=== PATIENT | male | born 1965 | race Two or more races ===

== ENCOUNTER 2021-11-02 13:35 | Inpatient (IN) | payer OTHER ==
[2021-11-02 14:37] VITALS: PULSE 117; BMI 17.7
[2021-11-02] MEDS ORDERED: BENZOCAINE/MENTHOL (CHLORASEPTIC ) LOZENGE MM PRN (15:56)
[2021-11-02] MEDS ORDERED: BISMUTH SUBSALICYLATE 524 MG/30 ML PO PRN (15:56)
[2021-11-02] MEDS ORDERED: LOPERAMIDE HCL 2 MG CAPSULE PO PRN (15:56)
[2021-11-02] MEDS ORDERED: MAG HYDROX/AL HYDROX/SIMETH 30 ML UNIT-DOSE CUP PO PRN (15:56)
[2021-11-02] MEDS ORDERED: METHOCARBAMOL 500 MG TABLET PO PRN (15:56)
[2021-11-02] MEDS ORDERED: ACETAMINOPHEN 325 MG TABLET (FP) PO PRN ×2 (15:56)
[2021-11-02] MEDS ORDERED: IBUPROFEN 600 MG TABLET (FP) PO PRN (15:56)
[2021-11-02] MEDS ORDERED: MAGNESIUM CITRATE 300 ML BOTTLE PO PRN (15:56)
[2021-11-02] MEDS ORDERED: IBUPROFEN 400 MG TABLET (FP) PO PRN (15:56)
[2021-11-02] MEDS ORDERED: MAGNESIUM HYDROX 2400MG/30ML ORAL SUSPENSION 30 ML CUP PO PRN (15:56)
[2021-11-02] MEDS ORDERED: DICYCLOMINE HCL 10 MG CAPSULE PO PRN (15:56)
[2021-11-02] MEDS ORDERED: ONDANSETRON *ODT* 4 MG TABLET SL PRN (15:56)
[2021-11-02] MEDS ORDERED: LORazepam 1 MG TABLET PO PRN (16:14)
[2021-11-02] MEDS: LORazepam 2 MG TABLET PO SCH ×2 (16:28→22:44)
[2021-11-02] MEDS: INSULIN SLIDING SCALE (NOVOLOG) 1 VIAL SQ SCH ×3 (18:44→22:46)
[2021-11-02] MEDS ORDERED: INSULIN (NOVOLOG) ASPART 100 UNITS/ML 10ML VIAL ONE (18:48)
[2021-11-02] MEDS: hydrOXYzine PAMOATE 25 MG CAPSULE (FP) PO SCH ×2 (19:07→22:45)
[2021-11-02 20:29] VITALS: BP 145/101; TEMP 97.6
[2021-11-02] MEDS ORDERED: METOPROLOL TARTRATE 25 MG TABLET (FP) PO ONE (20:31)
[2021-11-02] MEDS ORDERED: MELATONIN 5 MG TABLETS PO SCH (22:00)
[2021-11-02] MEDS ORDERED: THIAMINE HCL 100 MG TABLET (FP) PO SCH (22:00)
[2021-11-03] MEDS: LORazepam 2 MG TABLET PO SCH (05:56)
[2021-11-03] MEDS: INSULIN SLIDING SCALE (NOVOLOG) 1 VIAL SQ SCH (06:08)
[2021-11-03] MEDS ORDERED: PRENATAL VITAMINS W/ FOLIC ACID TABLET (FP) PO SCH (10:00)
[2021-11-04] MEDS ORDERED: LORazepam 1 MG TABLET PO SCH (05:00)
[2021-11-05] MEDS ORDERED: LORazepam 0.5 MG TABLET PO PRN
[2021-11-05] MEDS ORDERED: LORazepam 0.5 MG TABLET PO SCH (05:00)
[2021-11-06] MEDS ORDERED: LORazepam 0.5 MG TABLET PO ONE (05:00)
== END 2021-11-03 06:48 | disposition short-term general hospital (02) | DRG 775 ==
LOC: YASAS 13:35 → Y6N 15:50
PROVIDERS: ADMIT Allergy & Immunology; ATTEND Surgery
PROC: HZ2ZZZZ Detoxification Services for Substance Abuse Treatment (ICD-10-PCS; principal; 2021-11-02)
DX: F10.230 Alcohol dependence with withdrawal, uncomplicated (principal); E11.9 Type 2 diabetes mellitus without complications; R94.31 Abnormal electrocardiogram [ECG] [EKG]; R63.4 Abnormal weight loss; Z68.1 Body mass index [BMI] 19.9 or less, adult
CPT/HCPCS: 82962; 93005; 93010; C9803-CS; U0003; U0005

== ENCOUNTER 2021-11-03 00:34 | Inpatient (IN) | payer OTHER ==
[2021-11-03] MEDS ORDERED: SODIUM CHLORIDE 0.9% 500 ML INFUS.BAG IV ONE (01:06)
[2021-11-03 02:03] LABS: BASO % 0.4 % (0-2.0); EOS % 0.9 % (0-4.5); HEMATOCRIT 37.2 % (35.4-49); HEMOGLOBIN 12.6 GM/dL (11.7-16.9); LYMPH % 28.9 % (8-40); MCH 28.9 pg (25.7-33.7); MCHC 33.8 g/dl (32.0-35.9); MEAN CELL VOLUME 85.5 fl (80-96); MEAN PLT VOLUME 7.7 fl (7.5-11.1); MONO % 10.2 % (3.8-10.2); NEUT % 59.6 % (42.8-82.8); PLATELET COUNT 86 10^3/uL (134-434); RBC 4.35 M/mm3 (4.00-5.60); WHITE BLOOD COUNT 6.8 K/mm3 (4.0-10.0)
[2021-11-03 02:11] LABS: INR 0.97 (0.83-1.09); PROTHROMBIN TIME (PATIENT) 11.2 SEC (9.7-13.0)
[2021-11-03 02:13] LABS: ACTIVATED PTT 34.9 SECONDS (25.2-36.5)
[2021-11-03 02:25] LABS: CALCIUM 8.7 mg/dL (8.5-10.1)
[2021-11-03 02:26] LABS: ALBUMIN 3.7 g/dl (3.4-5.0); BLOOD UREA NITROGEN 11.8 mg/dL (7-18)
[2021-11-03 02:29] LABS: CREATININE 0.7 mg/dL (0.55-1.3)
[2021-11-03 02:30] LABS: TOT PROT 7.2 g/dl (6.4-8.2)
[2021-11-03 02:31] LABS: BILIRUBIN,TOTAL 0.9 mg/dL (0.2-1)
[2021-11-03] MEDS ORDERED: FAMOTIDINE 20 MG/50 ML IVPB 20 MG/50 ML MG IVPB ONE ×2 (04:23→04:26)
[2021-11-03] MEDS ORDERED: LORazepam 2 MG/ML SDV VIAL IVPUSH ONE (04:45)
[2021-11-03] MEDS ORDERED: ENOXAPARIN NA (PORCINE) 40 MG/0.4 ML DISP.SYRIN SQ ONE (08:54)
[2021-11-03] MEDS ORDERED: MAGNESIUM SULFATE IN WATER 2 GM/50 ML IVPB IVPB ONE (08:54)
[2021-11-03] MEDS ORDERED: MAGNESIUM 2GM/50ML STERILE WATER IVPB IVPB ONE (09:00)
[2021-11-03] MEDS ORDERED: ENOXAPARIN NA (PORCINE) 40 MG/0.4 ML DISP.SYRIN SQ SCH (10:00)
[2021-11-03 10:47] VITALS: BMI 17.6
[2021-11-03] MEDS ORDERED: INSULIN (NOVOLOG) ASPART 100 UNITS/ML 10ML VIAL ONE (11:53)
[2021-11-03] MEDS: FOLIC ACID 1 MG TABLET (FP) PO SCH (11:59)
[2021-11-03] MEDS: INSULIN SLIDING SCALE (NOVOLOG) 1 VIAL SQ SCH ×3 (12:00→21:21)
[2021-11-03] MEDS: THIAMINE HCL 200 MG/2 ML VIAL IVPB SCH (12:00)
[2021-11-03] MEDS: MAG HYDROX/AL HYDROX/SIMETH 30 ML UNIT-DOSE CUP PO PRN ×2 (12:07→21:37)
[2021-11-03] MEDS ORDERED: ONDANSETRON 4 MG/2 ML VIAL IVPUSH PRN (13:27)
[2021-11-03] MEDS: LORazepam 2 MG/ML SDV VIAL IVPUSH PRN ×2 (14:12→21:20)
[2021-11-03 15:03] LABS: N-TERMINAL BNP 922.4 pg/ml (5-125)
[2021-11-03] MEDS: MAG HYDROX/AL HYDROX/SIMETH 30 ML UNIT-DOSE CUP PO SCH ×2 (17:33→23:31)
[2021-11-03 20:51] LABS: BLOOD UREA NITROGEN 12.4 mg/dL (7-18); MAGNESIUM 1.5 mg/dL (1.8-2.4)
[2021-11-03 20:54] LABS: CREATININE 0.9 mg/dL (0.55-1.3)
[2021-11-03] MEDS: FAMOTIDINE 20 MG/50 ML IVPB 20 MG/50 ML MG IVPB SCH (21:20)
[2021-11-03 21:49] LABS: EPI CELLS 1 /uL (0-25.1); HYALINE CASTS 0 /uL (0-3.1); PH,URINE 8.5 (5.0-8.0); URINE APPEARANCE CLEAR; URINE BACTERIA 9 /uL (0-1359); URINE BILIRUBIN NEGATIVE (NEGATIVE); URINE COLOR YELLOW; URINE GLUCOSE (UA) NEGATIVE (NEGATIVE); URINE KETONE TRACE (NEGATIVE); URINE LEUK ESTERASE NEGATIVE (NEGATIVE); URINE NITRITE NEGATIVE (NEGATIVE); URINE PROTEIN 1+ (NEGATIVE); URINE RBC 5 /uL (0-23.9); URINE WBC 1 /uL (0-25.8)
[2021-11-04] MEDS ORDERED: LORazepam 2 MG/ML SDV VIAL IVPUSH ONE ×2 (00:56→02:07)
[2021-11-04] MEDS: MAG HYDROX/AL HYDROX/SIMETH 30 ML UNIT-DOSE CUP PO SCH ×3 (06:13→17:00)
[2021-11-04] MEDS: INSULIN SLIDING SCALE (NOVOLOG) 1 VIAL SQ SCH ×4 (06:14→21:28)
[2021-11-04] MEDS: LORazepam 2 MG/ML SDV VIAL IVPUSH PRN (06:15)
[2021-11-04] MEDS ORDERED: LOSARTAN POTASSIUM 25 MG TABLET PO SCH (10:00)
[2021-11-04] MEDS: FAMOTIDINE 20 MG/50 ML IVPB 20 MG/50 ML MG IVPB SCH ×2 (10:58→21:29)
[2021-11-04] MEDS: THIAMINE HCL 200 MG/2 ML VIAL IVPB SCH (10:59)
[2021-11-04] MEDS: FOLIC ACID 1 MG TABLET (FP) PO SCH (10:59)
[2021-11-04 11:02] LABS: BASO % 0.5 % (0-2.0); EOS % 0.3 % (0-4.5); HEMATOCRIT 35.1 % (35.4-49); HEMOGLOBIN 11.9 GM/dL (11.7-16.9); MCHC 33.8 g/dl (32.0-35.9); MEAN CELL VOLUME 85.8 fl (80-96); MEAN PLT VOLUME 8.5 fl (7.5-11.1); MONO % 10.9 % (3.8-10.2); NEUT % 63.3 % (42.8-82.8); PLATELET COUNT 78 10^3/uL (134-434); RBC 4.09 M/mm3 (4.00-5.60); RDW 16.1 % (11.9-15.9); WHITE BLOOD COUNT 5.4 K/mm3 (4.0-10.0)
[2021-11-04 11:11] LABS: ALBUMIN 3.5 g/dl (3.4-5.0); BLOOD UREA NITROGEN 10.8 mg/dL (7-18)
[2021-11-04 11:12] LABS: CALCIUM 8.9 mg/dL (8.5-10.1); MAGNESIUM 1.6 mg/dL (1.8-2.4)
[2021-11-04 11:14] LABS: CREATININE 0.7 mg/dL (0.55-1.3)
[2021-11-04 11:16] LABS: BILIRUBIN,TOTAL 0.8 mg/dL (0.2-1); TOT PROT 6.7 g/dl (6.4-8.2)
[2021-11-04] MEDS: POTASSIUM CHLORIDE TABS 20 MEQ TABLET.ER (FP) PO SCH (16:02)
[2021-11-04] MEDS ORDERED: LORazepam 2 MG/ML SDV VIAL IVPUSH PRN (18:34)
[2021-11-04] MEDS ORDERED: ONDANSETRON 4 MG/2 ML VIAL IVPUSH PRN (18:34)
[2021-11-04] MEDS: LORazepam 2 MG/ML SDV VIAL IVPUSH SCH ×2 (18:59→22:52)
[2021-11-05] MEDS ORDERED: MAG HYDROX/AL HYDROX/SIMETH 30 ML UNIT-DOSE CUP PO SCH
[2021-11-05] MEDS: LORazepam 2 MG/ML SDV VIAL IVPUSH SCH ×6 (03:16→23:30)
[2021-11-05] MEDS: INSULIN SLIDING SCALE (NOVOLOG) 1 VIAL SQ SCH ×4 (06:11→21:17)
[2021-11-05 07:35] LABS: BASO % 0.8 % (0-2.0); EOS % 2.6 % (0-4.5); HEMOGLOBIN 11.5 GM/dL (11.7-16.9); LYMPH % 39.6 % (8-40); MCH 29.5 pg (25.7-33.7); MCHC 33.8 g/dl (32.0-35.9); MEAN CELL VOLUME 87.3 fl (80-96); MEAN PLT VOLUME 8.5 fl (7.5-11.1); MONO % 12.2 % (3.8-10.2); NEUT % 44.8 % (42.8-82.8); PLATELET COUNT 89 10^3/uL (134-434); RDW 15.8 % (11.9-15.9); WHITE BLOOD COUNT 3.8 K/mm3 (4.0-10.0)
[2021-11-05 07:53] LABS: ALBUMIN 3.3 g/dl (3.4-5.0); BLOOD UREA NITROGEN 11.9 mg/dL (7-18)
[2021-11-05 07:56] LABS: CREATININE 0.8 mg/dL (0.55-1.3)
[2021-11-05 07:58] LABS: BILIRUBIN,TOTAL 0.7 mg/dL (0.2-1); TOT PROT 6.2 g/dl (6.4-8.2)
[2021-11-05] MEDS: POTASSIUM CHLORIDE TABS 20 MEQ TABLET.ER (FP) PO SCH (10:36)
[2021-11-05] MEDS: FAMOTIDINE 20 MG/50 ML IVPB 20 MG/50 ML MG IVPB SCH ×2 (10:36→21:20)
[2021-11-05] MEDS: LOSARTAN POTASSIUM 25 MG TABLET PO SCH (10:38)
[2021-11-05] MEDS: FOLIC ACID 1 MG TABLET (FP) PO SCH (10:38)
[2021-11-05] MEDS: THIAMINE HCL 200 MG/2 ML VIAL IVPB SCH (10:39)
[2021-11-05] MEDS: INSULIN (LEVEMIR) 100 UNITS/ML UNITS SQ SCH ×2 (11:16→16:59)
[2021-11-06] MEDS: LORazepam 2 MG/ML SDV VIAL IVPUSH SCH ×3 (04:01→11:53)
[2021-11-06] MEDS: INSULIN (LEVEMIR) 100 UNITS/ML UNITS SQ SCH ×2 (06:47→16:59)
[2021-11-06 07:53] LABS: BASO % 0.6 % (0-2.0); EOS % 2.3 % (0-4.5); HEMATOCRIT 35.2 % (35.4-49); HEMOGLOBIN 11.7 GM/dL (11.7-16.9); MCH 29.3 pg (25.7-33.7); MCHC 33.2 g/dl (32.0-35.9); MEAN CELL VOLUME 88.3 fl (80-96); MEAN PLT VOLUME 8.4 fl (7.5-11.1); MONO % 14.6 % (3.8-10.2); NEUT % 43.5 % (42.8-82.8); PLATELET COUNT 115 10^3/uL (134-434); RBC 3.99 M/mm3 (4.00-5.60); RDW 15.6 % (11.9-15.9); WHITE BLOOD COUNT 4.2 K/mm3 (4.0-10.0)
[2021-11-06 08:14] LABS: CALCIUM 8.9 mg/dL (8.5-10.1)
[2021-11-06 08:15] LABS: ALBUMIN 3.2 g/dl (3.4-5.0); BLOOD UREA NITROGEN 10.9 mg/dL (7-18)
[2021-11-06 08:18] LABS: CREATININE 0.7 mg/dL (0.55-1.3)
[2021-11-06 08:19] LABS: BILIRUBIN,TOTAL 0.6 mg/dL (0.2-1); TOT PROT 6.1 g/dl (6.4-8.2)
[2021-11-06] MEDS: LOSARTAN POTASSIUM 25 MG TABLET PO SCH (09:44)
[2021-11-06] MEDS: FAMOTIDINE 20 MG/50 ML IVPB 20 MG/50 ML MG IVPB SCH ×2 (09:51→21:11)
[2021-11-06] MEDS: POTASSIUM CHLORIDE TABS 20 MEQ TABLET.ER (FP) PO SCH (09:51)
[2021-11-06] MEDS: FOLIC ACID 1 MG TABLET (FP) PO SCH (09:51)
[2021-11-06] MEDS: THIAMINE HCL 200 MG/2 ML VIAL IVPB SCH (09:51)
[2021-11-06] MEDS: INSULIN SLIDING SCALE (NOVOLOG) 1 VIAL SQ SCH ×4 (11:19→21:12)
[2021-11-06] MEDS ORDERED: ACETAMINOPHEN 1000 MG/100 ML BAG IVPB PRN (11:34)
[2021-11-06] MEDS: LORazepam 1 MG TABLET PO PRN ×2 (12:06→21:11)
[2021-11-06] MEDS: LACTATED RINGERS SOLUTION 1,000 ML/1,000 ML INFUS.BAG IV SCH (12:12)
[2021-11-06] MEDS: metoPROLOL SUCCINATE 25 MG TAB.SR.24H (FP) PO SCH (12:17)
[2021-11-06 13:51] LABS: BASO % 0.5 % (0-2.0); HEMOGLOBIN 11.6 GM/dL (11.7-16.9); LYMPH % 35.1 % (8-40); MCH 29.3 pg (25.7-33.7); MCHC 33.2 g/dl (32.0-35.9); MEAN CELL VOLUME 88.5 fl (80-96); MEAN PLT VOLUME 8.5 fl (7.5-11.1); MONO % 13.2 % (3.8-10.2); NEUT % 49.2 % (42.8-82.8); PLATELET COUNT 122 10^3/uL (134-434); RBC 3.95 M/mm3 (4.00-5.60); RDW 16.1 % (11.9-15.9); WHITE BLOOD COUNT 3.8 K/mm3 (4.0-10.0)
[2021-11-06 14:11] LABS: ALBUMIN 3.1 g/dl (3.4-5.0); CALCIUM 9.2 mg/dL (8.5-10.1)
[2021-11-06 14:12] LABS: BLOOD UREA NITROGEN 10.5 mg/dL (7-18)
[2021-11-06 14:14] LABS: CREATININE 0.7 mg/dL (0.55-1.3)
[2021-11-06 14:17] LABS: BILIRUBIN,TOTAL 0.4 mg/dL (0.2-1); TOT PROT 6.1 g/dl (6.4-8.2)
[2021-11-07] MEDS: INSULIN SLIDING SCALE (NOVOLOG) 1 VIAL SQ SCH ×4 (06:15→21:19)
[2021-11-07] MEDS: INSULIN (LEVEMIR) 100 UNITS/ML UNITS SQ SCH ×2 (06:19→18:20)
[2021-11-07] MEDS ORDERED: TRIMETHOBENZAMIDE HCL 200MG/2ML INJ IM PRN (08:33)
[2021-11-07 09:02] LABS: BASO % 0.8 % (0-2.0); HEMATOCRIT 34.2 % (35.4-49); HEMOGLOBIN 11.4 GM/dL (11.7-16.9); LYMPH % 41.2 % (8-40); MCH 29.5 pg (25.7-33.7); MCHC 33.2 g/dl (32.0-35.9); MEAN CELL VOLUME 88.7 fl (80-96); MEAN PLT VOLUME 8.6 fl (7.5-11.1); MONO % 16.2 % (3.8-10.2); NEUT % 39.8 % (42.8-82.8); PLATELET COUNT 143 10^3/uL (134-434); RBC 3.86 M/mm3 (4.00-5.60); RDW 16.2 % (11.9-15.9)
[2021-11-07] MEDS: MULTIVIT-MINERALS ORAL LIQUID PO SCH (09:35)
[2021-11-07] MEDS: metoPROLOL SUCCINATE 25 MG TAB.SR.24H (FP) PO SCH (09:36)
[2021-11-07] MEDS: LOSARTAN POTASSIUM 25 MG TABLET PO SCH (09:36)
[2021-11-07] MEDS: POTASSIUM CHLORIDE TABS 20 MEQ TABLET.ER (FP) PO SCH (09:36)
[2021-11-07] MEDS: FOLIC ACID 1 MG TABLET (FP) PO SCH (09:36)
[2021-11-07] MEDS: THIAMINE HCL 200 MG/2 ML VIAL IVPB SCH (09:37)
[2021-11-07 09:38] LABS: ALBUMIN 3.2 g/dl (3.4-5.0); BLOOD UREA NITROGEN 14.7 mg/dL (7-18)
[2021-11-07] MEDS: FAMOTIDINE 20 MG/50 ML IVPB 20 MG/50 ML MG IVPB SCH (09:38)
[2021-11-07 09:39] LABS: CALCIUM 9.2 mg/dL (8.5-10.1)
[2021-11-07 09:41] LABS: CREATININE 0.7 mg/dL (0.55-1.3)
[2021-11-07 09:42] LABS: BILIRUBIN,TOTAL 0.4 mg/dL (0.2-1); TOT PROT 6.3 g/dl (6.4-8.2)
[2021-11-07] MEDS: LACTATED RINGERS SOLUTION 1,000 ML/1,000 ML INFUS.BAG IV SCH (12:19)
[2021-11-07] MEDS: ENOXAPARIN NA (PORCINE) 40 MG/0.4 ML DISP.SYRIN SQ SCH (12:21)
[2021-11-08] MEDS: LACTATED RINGERS SOLUTION 1,000 ML/1,000 ML INFUS.BAG IV SCH ×2 (02:50→11:53)
[2021-11-08] MEDS: MAG HYDROX/AL HYDROX/SIMETH 30 ML UNIT-DOSE CUP PO PRN (04:26)
[2021-11-08] MEDS: INSULIN (LEVEMIR) 100 UNITS/ML UNITS SQ SCH ×3 (06:13→21:41)
[2021-11-08] MEDS: INSULIN SLIDING SCALE (NOVOLOG) 1 VIAL SQ SCH ×4 (06:13→21:41)
[2021-11-08 07:37] LABS: INR 0.97 (0.83-1.09); PROTHROMBIN TIME (PATIENT) 11.1 SEC (9.7-13.0)
[2021-11-08 07:40] LABS: BASO % 0.8 % (0-2.0); EOS % 1.4 % (0-4.5); HEMATOCRIT 33.8 % (35.4-49); HEMOGLOBIN 11.2 GM/dL (11.7-16.9); LYMPH % 39.5 % (8-40); MCH 29.1 pg (25.7-33.7); MCHC 33.1 g/dl (32.0-35.9); MEAN PLT VOLUME 8.4 fl (7.5-11.1); MONO % 20.4 % (3.8-10.2); NEUT % 37.9 % (42.8-82.8); PLATELET COUNT 188 10^3/uL (134-434); RBC 3.84 M/mm3 (4.00-5.60); RDW 15.7 % (11.9-15.9); WHITE BLOOD COUNT 4.7 K/mm3 (4.0-10.0)
[2021-11-08 08:21] LABS: ALBUMIN 3.3 g/dl (3.4-5.0); BLOOD UREA NITROGEN 16.7 mg/dL (7-18); CALCIUM 9.6 mg/dL (8.5-10.1); MAGNESIUM 1.3 mg/dL (1.8-2.4)
[2021-11-08 08:25] LABS: CREATININE 0.7 mg/dL (0.55-1.3); PHOSPHOROUS 5.6 mg/dL (2.5-4.9)
[2021-11-08 08:26] LABS: BILIRUBIN,TOTAL 0.4 mg/dL (0.2-1); TOT PROT 6.4 g/dl (6.4-8.2)
[2021-11-08] MEDS ORDERED: MAGNESIUM SULF 50% (8.12 MEQ/2 ML-1 GM VIAL) IVPB ONE (08:31)
[2021-11-08 09:03] LABS: ANISOCYTOSIS 0; HELMET CELLS 0; HOWELL-JOLLY BODIES 0; MACROCYTOSIS 0; OVALOCYTE 0; ROULEAU 0; SICKELED CELLS 0; TARGET CELLS 0; TEAR DROP CELLS 0; TOXIC GRANULATION 0
[2021-11-08] MEDS: MULTIVIT-MINERALS ORAL LIQUID PO SCH (09:22)
[2021-11-08] MEDS: ENOXAPARIN NA (PORCINE) 40 MG/0.4 ML DISP.SYRIN SQ SCH (09:22)
[2021-11-08] MEDS: LOSARTAN POTASSIUM 25 MG TABLET PO SCH (09:23)
[2021-11-08] MEDS: THIAMINE HCL 200 MG/2 ML VIAL IVPB SCH (09:23)
[2021-11-08] MEDS: metoPROLOL SUCCINATE 25 MG TAB.SR.24H (FP) PO SCH (09:23)
[2021-11-08] MEDS: PANTOPRAZOLE 20 MG TABLET PO SCH (09:23)
[2021-11-08] MEDS: FOLIC ACID 1 MG TABLET (FP) PO SCH (09:23)
[2021-11-08] MEDS: POTASSIUM CHLORIDE TABS 20 MEQ TABLET.ER (FP) PO SCH (09:23)
[2021-11-08] MEDS ORDERED: REGADENOSON 0.4 MG/5 ML PRE-FILLED SYRINGE IVPUSH ONE ×2 (09:25→10:15)
[2021-11-08] MEDS ORDERED: metoPROLOL SUCCINATE 25 MG TAB.SR.24H (FP) PO SCH (14:48)
[2021-11-08] MEDS: LORazepam 1 MG TABLET PO SCH ×2 (15:55→21:40)
[2021-11-09] MEDS: MAG HYDROX/AL HYDROX/SIMETH 30 ML UNIT-DOSE CUP PO PRN ×3 (00:24→21:37)
[2021-11-09] MEDS: INSULIN (LEVEMIR) 100 UNITS/ML UNITS SQ SCH ×2 (06:06→21:25)
[2021-11-09] MEDS: INSULIN SLIDING SCALE (NOVOLOG) 1 VIAL SQ SCH ×4 (06:07→21:24)
[2021-11-09 08:23] LABS: HEMATOCRIT 31.9 % (35.4-49); HEMOGLOBIN 10.6 GM/dL (11.7-16.9); MCH 29.3 pg (25.7-33.7); MCHC 33.2 g/dl (32.0-35.9); MEAN CELL VOLUME 88.4 fl (80-96); MEAN PLT VOLUME 8.4 fl (7.5-11.1); PLATELET COUNT 233 10^3/uL (134-434); RBC 3.61 M/mm3 (4.00-5.60); RDW 15.8 % (11.9-15.9); WHITE BLOOD COUNT 4.3 K/mm3 (4.0-10.0)
[2021-11-09] MEDS: FOLIC ACID 1 MG TABLET (FP) PO SCH (09:25)
[2021-11-09] MEDS: PANTOPRAZOLE 20 MG TABLET PO SCH (09:25)
[2021-11-09] MEDS: POTASSIUM CHLORIDE TABS 20 MEQ TABLET.ER (FP) PO SCH (09:25)
[2021-11-09] MEDS: LORazepam 1 MG TABLET PO SCH (09:26)
[2021-11-09] MEDS: THIAMINE HCL 200 MG/2 ML VIAL IVPB SCH (09:26)
[2021-11-09] MEDS: LOSARTAN POTASSIUM 25 MG TABLET PO SCH (09:26)
[2021-11-09] MEDS: ENOXAPARIN NA (PORCINE) 40 MG/0.4 ML DISP.SYRIN SQ SCH (09:28)
[2021-11-09] MEDS: MULTIVIT-MINERALS ORAL LIQUID PO SCH (09:38)
[2021-11-09] MEDS ORDERED: metoPROLOL SUCCINATE 25 MG TAB.SR.24H (FP) PO SCH (10:00)
[2021-11-09] MEDS: LACTATED RINGERS SOLUTION 1,000 ML/1,000 ML INFUS.BAG IV SCH (12:03)
[2021-11-09 14:45] LABS: ALBUMIN 3.3 g/dl (3.4-5.0); BLOOD UREA NITROGEN 9.4 mg/dL (7-18); CALCIUM 8.9 mg/dL (8.5-10.1); MAGNESIUM 1.7 mg/dL (1.8-2.4)
[2021-11-09 14:48] LABS: CREATININE 0.6 mg/dL (0.55-1.3)
[2021-11-09 14:49] LABS: PHOSPHOROUS 4.6 mg/dL (2.5-4.9)
[2021-11-09 14:50] LABS: BILIRUBIN,TOTAL 0.3 mg/dL (0.2-1); TOT PROT 6.4 g/dl (6.4-8.2)
[2021-11-09] MEDS ORDERED: TRIMETHOBENZAMIDE HCL 200MG/2ML INJ IM PRN (18:43)
[2021-11-09] MEDS ORDERED: LORazepam 0.5 MG TABLET PO PRN ×2 (18:43)
[2021-11-09] MEDS ORDERED: LACTATED RINGERS SOLUTION 1,000 ML/1,000 ML INFUS.BAG IV SCH (18:43)
[2021-11-09] MEDS: metoPROLOL SUCCINATE 25 MG TAB.SR.24H (FP) PO SCH (21:24)
[2021-11-10] MEDS: INSULIN SLIDING SCALE (NOVOLOG) 1 VIAL SQ SCH ×2 (06:43→12:32)
[2021-11-10] MEDS: INSULIN (LEVEMIR) 100 UNITS/ML UNITS SQ SCH (06:43)
[2021-11-10] MEDS ORDERED: INSULIN (NOVOLOG) ASPART 100 UNITS/ML 10ML VIAL ONE (06:54)
[2021-11-10] MEDS ORDERED: amLODIPine BESYLATE 5 MG TABLET (FP) PO SCH (09:18)
[2021-11-10 09:20] LABS: HEMATOCRIT 34.2 % (35.4-49); HEMOGLOBIN 11.7 GM/dL (11.7-16.9); MCHC 34.3 g/dl (32.0-35.9); MEAN CELL VOLUME 87.5 fl (80-96); MEAN PLT VOLUME 7.8 fl (7.5-11.1); PLATELET COUNT 348 10^3/uL (134-434); RBC 3.91 M/mm3 (4.00-5.60); RDW 15.9 % (11.9-15.9); WHITE BLOOD COUNT 6.2 K/mm3 (4.0-10.0)
[2021-11-10] MEDS: metoPROLOL SUCCINATE 25 MG TAB.SR.24H (FP) PO SCH (09:44)
[2021-11-10] MEDS ORDERED: LOSARTAN POTASSIUM 25 MG TABLET PO ONE (09:59)
[2021-11-10] MEDS ORDERED: LOSARTAN POTASSIUM 25 MG TABLET PO SCH (10:00)
[2021-11-10] MEDS ORDERED: FOLIC ACID 1 MG TABLET (FP) PO SCH (10:00)
[2021-11-10] MEDS ORDERED: THIAMINE HCL 200 MG/2 ML VIAL IVPB SCH (10:00)
[2021-11-10] MEDS ORDERED: LOSARTAN POTASSIUM 50 MG TABLET PO SCH (10:00)
[2021-11-10] MEDS ORDERED: PANTOPRAZOLE 20 MG TABLET PO SCH (10:00)
[2021-11-10] MEDS ORDERED: ENOXAPARIN NA (PORCINE) 40 MG/0.4 ML DISP.SYRIN SQ SCH (10:00)
[2021-11-10] MEDS ORDERED: MULTIVIT-MINERALS ORAL LIQUID PO SCH (10:00)
[2021-11-10] MEDS ORDERED: POTASSIUM CHLORIDE TABS 20 MEQ TABLET.ER (FP) PO SCH (10:00)
[2021-11-10] MEDS ORDERED: THIAMINE HCL 100 MG TABLET (FP) PO SCH (10:00)
[2021-11-10 10:21] LABS: ALBUMIN 3.9 g/dl (3.4-5.0); BLOOD UREA NITROGEN 13.8 mg/dL (7-18); CALCIUM 9.9 mg/dL (8.5-10.1); MAGNESIUM 1.7 mg/dL (1.8-2.4)
[2021-11-10 10:24] LABS: CREATININE 0.6 mg/dL (0.55-1.3)
[2021-11-10 10:26] LABS: BILIRUBIN,TOTAL 0.3 mg/dL (0.2-1); TOT PROT 7.1 g/dl (6.4-8.2)
[2021-11-10] MEDS: MAG HYDROX/AL HYDROX/SIMETH 30 ML UNIT-DOSE CUP PO PRN (11:50)
[2021-11-10 15:28] VITALS: BP 134/88; PULSE 54; TEMP 98.3
[2021-11-10 20:06] LABS: GLIADIN ANTIBODY IGA 3 units (0-19); GLIADIN ANTIBODY IGG <1 units (0-19); TRANSGLUTAMINASE IGG < 2 U/mL (0-5)
[2021-11-11] MEDS ORDERED: LOSARTAN POTASSIUM 50 MG TABLET PO SCH (10:00)
== END 2021-11-10 16:51 | disposition other institution (70) | DRG 775 ==
LOC: JER 00:34 → JERBED 04:24 → UNDOADMOB 04:24 → INTOOBSV 04:24 → JERBED 08:22 → J8W 10:08 → OBSVTOIN 12:04 → J4W 11-04 18:23 → J8W 11-09 18:26
PROVIDERS: ADMIT Internal Medicine
PROC: HZ2ZZZZ Detoxification Services for Substance Abuse Treatment (ICD-10-PCS; principal; 2021-11-03)
DX: F10.239 Alcohol dependence with withdrawal, unspecified (principal); K76.0 Fatty (change of) liver, not elsewhere classified; K86.0 Alcohol-induced chronic pancreatitis; I11.0 Hypertensive heart disease with heart failure; I50.20 Unspecified systolic (congestive) heart failure; I42.9 Cardiomyopathy, unspecified; E78.5 Hyperlipidemia, unspecified; R11.2 Nausea with vomiting, unspecified; F17.200 Nicotine dependence, unspecified, uncomplicated; D69.59 Other secondary thrombocytopenia; K70.9 Alcoholic liver disease, unspecified; K86.2 Cyst of pancreas; E11.9 Type 2 diabetes mellitus without complications; I42.6 Alcoholic cardiomyopathy; N20.0 Calculus of kidney; E83.42 Hypomagnesemia; K29.20 Alcoholic gastritis without bleeding; I44.7 Left bundle-branch block, unspecified; F39 Unspecified mood [affective] disorder
CPT/HCPCS: 36415; 71045-TC-FY; 74177-TC; 74182-TC; 76705-TC; 78452-TC; 80048; 80053; 80061; 81003; 82550; 82553; 82728; 82784; 82962; 83036; 83516; 83540; 83550; 83615; 83690; 83735; 83880; 84100; 84484; 85025; 85027; 85610; 85730; 86038; 86301; 86704; 86705; 86709; 86803; 87340; 87517; 93005; 93010; 93017; 93306-TC; 97116-GP; 97161-GP; 99285-25; A9502; C9803-CS; G0378; J2785; U0003; U0005

== ENCOUNTER 2021-11-10 16:35 | Inpatient (IN) | payer OTHER ==
[2021-11-10 17:04] VITALS: BMI 19.7
[2021-11-10] MEDS ORDERED: MAGNESIUM CITRATE 300 ML BOTTLE PO PRN (17:40)
[2021-11-10] MEDS ORDERED: IBUPROFEN 400 MG TABLET (FP) PO PRN (17:40)
[2021-11-10] MEDS ORDERED: guaiFENesin 200 MG/10 ML 10 ML UNIT-DOSE CUPS PO PRN (17:40)
[2021-11-10] MEDS ORDERED: P-EPHED 60MG/TRIPROLIDI 2.5MG TABLET PO PRN (17:40)
[2021-11-10] MEDS ORDERED: MAG HYDROX/AL HYDROX/SIMETH 30 ML UNIT-DOSE CUP PO PRN (17:40)
[2021-11-10] MEDS ORDERED: MAGNESIUM HYDROX 2400MG/30ML ORAL SUSPENSION 30 ML CUP PO PRN (17:40)
[2021-11-10] MEDS ORDERED: ACETAMINOPHEN 325 MG TABLET (FP) PO PRN (17:40)
[2021-11-10] MEDS ORDERED: LOPERAMIDE HCL 2 MG CAPSULE PO PRN (17:40)
[2021-11-10] MEDS ORDERED: TRIMETHOBENZAMIDE HCL 200MG/2ML INJ IM PRN (17:44)
[2021-11-10] MEDS: THIAMINE HCL 100 MG TABLET (FP) PO SCH (21:26)
[2021-11-10] MEDS: MELATONIN 5 MG TABLETS PO SCH (21:26)
[2021-11-10] MEDS ORDERED: INSULIN (NOVOLOG) ASPART 100 UNITS/ML 10ML VIAL ONE ×2 (21:31→23:30)
[2021-11-10] MEDS: INSULIN SLIDING SCALE (NOVOLOG) 1 VIAL SQ SCH (21:32)
[2021-11-10] MEDS: INSULIN (LEVEMIR) 100 UNITS/ML UNITS SQ SCH (21:32)
[2021-11-10] MEDS: metoPROLOL SUCCINATE 25 MG TAB.SR.24H (FP) PO SCH (21:57)
[2021-11-11] MEDS: INSULIN SLIDING SCALE (NOVOLOG) 1 VIAL SQ SCH ×4 (06:32→21:15)
[2021-11-11] MEDS ORDERED: INSULIN (NOVOLOG) ASPART 100 UNITS/ML 10ML VIAL ONE ×3 (10:20→22:59)
[2021-11-11] MEDS: INSULIN (LEVEMIR) 100 UNITS/ML UNITS SQ SCH ×2 (10:20→21:13)
[2021-11-11] MEDS: PRENATAL VITAMINS W/ FOLIC ACID TABLET (FP) PO SCH (10:22)
[2021-11-11] MEDS: PANTOPRAZOLE 20 MG TABLET PO SCH (10:22)
[2021-11-11] MEDS: amLODIPine BESYLATE 5 MG TABLET (FP) PO SCH (10:22)
[2021-11-11] MEDS: LOSARTAN POTASSIUM 25 MG TABLET PO SCH (12:17)
[2021-11-11] MEDS: metoPROLOL SUCCINATE 25 MG TAB.SR.24H (FP) PO SCH ×2 (12:17→21:13)
[2021-11-11] MEDS: MELATONIN 5 MG TABLETS PO SCH (21:12)
[2021-11-11] MEDS: THIAMINE HCL 100 MG TABLET (FP) PO SCH (21:12)
[2021-11-11] MEDS ORDERED: INSULIN (LEVEMIR) 100 UNITS/ML UNITS SQ ONE (22:59)
[2021-11-12] MEDS: INSULIN SLIDING SCALE (NOVOLOG) 1 VIAL SQ SCH ×4 (06:49→21:21)
[2021-11-12] MEDS: amLODIPine BESYLATE 5 MG TABLET (FP) PO SCH (09:54)
[2021-11-12] MEDS: PRENATAL VITAMINS W/ FOLIC ACID TABLET (FP) PO SCH (09:54)
[2021-11-12] MEDS: PANTOPRAZOLE 20 MG TABLET PO SCH (09:55)
[2021-11-12] MEDS: LOSARTAN POTASSIUM 25 MG TABLET PO SCH (09:55)
[2021-11-12] MEDS: metoPROLOL SUCCINATE 25 MG TAB.SR.24H (FP) PO SCH ×2 (09:55→21:19)
[2021-11-12] MEDS: INSULIN (LEVEMIR) 100 UNITS/ML UNITS SQ SCH ×2 (11:00→21:20)
[2021-11-12] MEDS ORDERED: INSULIN (NOVOLOG) ASPART 100 UNITS/ML 10ML VIAL ONE ×2 (11:19→16:33)
[2021-11-12] MEDS ORDERED: INSULIN (LEVEMIR) 100 UNITS/ML UNITS SQ ONE (16:33)
[2021-11-12 20:50] VITALS: PULSE 76
[2021-11-12] MEDS: MELATONIN 5 MG TABLETS PO SCH (21:19)
[2021-11-12] MEDS: THIAMINE HCL 100 MG TABLET (FP) PO SCH (21:19)
[2021-11-13 06:48] VITALS: TEMP 98.2
[2021-11-13] MEDS: INSULIN SLIDING SCALE (NOVOLOG) 1 VIAL SQ SCH ×2 (06:51→11:10)
[2021-11-13 09:32] VITALS: BP 134/83
[2021-11-13] MEDS: PRENATAL VITAMINS W/ FOLIC ACID TABLET (FP) PO SCH (09:54)
[2021-11-13] MEDS: amLODIPine BESYLATE 5 MG TABLET (FP) PO SCH (09:54)
[2021-11-13] MEDS: PANTOPRAZOLE 20 MG TABLET PO SCH (09:54)
[2021-11-13] MEDS: LOSARTAN POTASSIUM 25 MG TABLET PO SCH (09:55)
[2021-11-13] MEDS: metoPROLOL SUCCINATE 25 MG TAB.SR.24H (FP) PO SCH (09:56)
[2021-11-13] MEDS ORDERED: INSULIN (NOVOLOG) ASPART 100 UNITS/ML 10ML VIAL ONE (11:11)
[2021-11-13] MEDS: INSULIN (LEVEMIR) 100 UNITS/ML UNITS SQ SCH (11:13)
== END 2021-11-13 14:50 | disposition left against medical advice (07) | DRG 770 ==
LOC: YASAS 16:35 → Y3E 17:55
PROVIDERS: ADMIT Allergy & Immunology; ATTEND Psychiatry & Neurology Pain Medicine
PROC: HZ42ZZZ Group Counseling for Substance Abuse Treatment, Cognitive-Behavioral (ICD-10-PCS; principal; 2021-11-10)
DX: F10.20 Alcohol dependence, uncomplicated (principal); K86.0 Alcohol-induced chronic pancreatitis; K86.89 Other specified diseases of pancreas; I42.8 Other cardiomyopathies; I10 Essential (primary) hypertension; K29.20 Alcoholic gastritis without bleeding; E11.9 Type 2 diabetes mellitus without complications; R79.89 Other specified abnormal findings of blood chemistry; Z79.4 Long term (current) use of insulin; Z87.891 Personal history of nicotine dependence
CPT/HCPCS: 36415; 82962